=== PATIENT | male | born 1970 | race Caucasian/White ===

== ENCOUNTER 2018-02-12 18:11 | Emergency (ER) | payer MEDICAID | END 2018-02-12 19:07 | disposition home or self-care (01) | LOC: FTE 18:11 | DX: K40.90 Unilateral inguinal hernia, without obstruction or gangrene, not specified as recurrent (principal) | CPT/HCPCS: 99282; Z7502 ==

== ENCOUNTER 2018-09-25 20:34 | Emergency (ER) | payer SELFPAY, MEDICAID | END 2018-09-26 01:34 | disposition home or self-care (01) | LOC: FTE 09-26 01:34 | DX: K40.90 Unilateral inguinal hernia, without obstruction or gangrene, not specified as recurrent (principal) | CPT/HCPCS: 76705; 99284-25 ==

== ENCOUNTER 2018-12-19 20:47 | Inpatient (IN) | payer SELFPAY, OTHER ==
[2018-12-19] MEDS: SOD CHLORIDE 0.9% 1,000 ML IV (21:11)
[2018-12-19] MEDS: HYDROmorphONE 1 MG/ML SYG IV (21:11)
[2018-12-19] MEDS: ONDANSETRON 4 MG INJ IV (21:11)
[2018-12-19 21:23] LABS: ADD MAN DIFF? NO
[2018-12-19 21:24] LABS: BASOPHIL # 0.1 10^3/ul (0.0-0.1); BASOPHILS % 0.3 % (0.0-2.0); EOSINOPHILS # 0.1 10^3/ul (0.0-0.5); EOSINOPHILS % 0.4 % (0.0-7.0); HEMOGLOBIN 15.9 g/dl (14.0-18.0); LYMPHOCYTES # 3.6 10^3/ul (0.8-2.9); LYMPHOCYTES % 24.8 % (15.0-51.0); MEAN CORPUSCULAR HEMOGLOBIN 32.6 pg (29.0-33.0); MEAN CORPUSCULAR HGB CONC 33.8 g/dl (32.0-37.0); MEAN CORPUSCULAR VOLUME 96.3 fl (82.0-101.0); MEAN PLATELET VOLUME 10.7 fl (7.4-10.4); MONOCYTE # 1.1 10^3/ul (0.3-0.9); MONOCYTES % 7.7 % (0.0-11.0); NEUTROPHIL # 9.7 10^3/ul (1.6-7.5); NEUTROPHILS % 66.2 % (39.0-77.0); PLATELET COUNT 291 10^3/UL (140-415); RED BLOOD COUNT 4.88 10^6/ul (4.70-6.10); RED CELL DISTRIBUTION WIDTH 12.6 % (11.5-14.5)
[2018-12-19 21:24] LABS: WHITE BLOOD COUNT 14.6 10^3/ul (4.8-10.8)
[2018-12-19 21:46] LABS: INR 0.86; PROTIME 11.8 Sec (11.9-14.9); PT RATIO 0.9
[2018-12-19 21:49] LABS: ALANINE AMINOTRANSFERASE 45 IU/L (13-69); ALBUMIN 4.5 g/dl (3.3-4.9); ALBUMIN/GLOBULIN RATIO 1.18; ALKALINE PHOSPHATASE 75 IU/L (42-121); ANION GAP 12 (5-13); ASPARTATE AMINO TRANSFERASE 43 IU/L (15-46); BILIRUBIN,INDIRECT 0.6 mg/dl (0-1.1); BILIRUBIN,TOTAL 0.6 mg/dl (0.2-1.3); BLOOD UREA NITROGEN 14 mg/dl (7-20); CARBON DIOXIDE 27 mmol/L (21-31); CHLORIDE 99 mmol/L (97-110); CREATININE 0.99 mg/dl (0.61-1.24); Estimated GFR > 60 mL/min (>60); GLUCOSE 140 mg/dl (70-220); LIPASE 73 U/L (23-300); POTASSIUM 3.8 mmol/L (3.5-5.1); SODIUM 138 mmol/L (135-144); TOTAL PROTEIN 8.3 g/dl (6.1-8.1)
[2018-12-19] MEDS: SOD CHLORIDE 0.9% 100 ML (22:42)
[2018-12-19] MEDS: IOHEXOL 300MG/ML 150 ML BTL (22:42)
[2018-12-19] MEDS: HYDROmorphONE 2 MG/ML SYG IV (22:58)
[2018-12-20] MEDS: CIPROFLOXACIN 400MG/D5W 200 ML IVPB (00:23)
[2018-12-20] MEDS ORDERED: LORAZEPAM 2 MG INJ IV (00:30)
[2018-12-20] MEDS ORDERED: ACETAMINOPHEN 325 MG TAB PO (00:30)
[2018-12-20] MEDS ORDERED: DOCUSATE SODIUM 100 MG CAP PO (00:30)
[2018-12-20] MEDS ORDERED: ALBUTEROL/IPRATROPIUM (NEB) 3 ML AMP HHN (00:30)
[2018-12-20] MEDS ORDERED: ONDANSETRON 4 MG INJ IV (00:30)
[2018-12-20] MEDS ORDERED: MAGNESIUM HYDROXIDE 30ML CUP PO (00:30)
[2018-12-20] MEDS ORDERED: hydrALAzine 20 MG INJ IV (00:30)
[2018-12-20] MEDS ORDERED: NITROGLYCERIN (SL) 0.4 MG TAB SL (00:30)
[2018-12-20] MEDS: metroNIDAZOLE 500 MG/NS (PMX) 100 ML IVPB (01:35)
[2018-12-20] MEDS: HYDROmorphONE 0.5 MG/0.5 ML SYG IV (02:00)
[2018-12-20] MEDS: SOD CHLORIDE 0.9% 1,000 ML IV ×4 (02:00→22:48)
[2018-12-20 02:16] LABS: FREE T4 (FREE THYROXINE) 1.05 ng/dl (0.64-1.79)
[2018-12-20 03:18] LABS: INR 0.92; PROTIME 12.5 Sec (11.9-14.9)
[2018-12-20 03:19] LABS: PARTIAL THROMBOPLASTIN TIME 25.7 Sec (23.0-35.0)
[2018-12-20] MEDS: morphine 2 MG INJ IV (04:37)
[2018-12-20] MEDS: PIPER-TAZO 3.375 GM IV (PMX) 100 ML IVPB ×4 (05:43→23:33)
[2018-12-20] MEDS: PANTOPRAZOLE 40 MG INJ IV (05:44)
[2018-12-20] MEDS: HYDROCODONE/APAP (5/325) TAB PO (07:26)
[2018-12-20] MEDS: FLUTICASONE 0.05% 16 GM NAS SPRAY NASAL ×2 (09:00→21:00)
[2018-12-20] MEDS: HYDROmorphONE 1 MG/ML SYG IV (09:22)
[2018-12-20] MEDS: HEPARIN 5,000 UNIT/1 ML VIAL SC ×2 (09:25→22:17)
[2018-12-20] MEDS: POLYETHYLENE GLYCOL 17 GM PACKET PO (11:23)
[2018-12-20] MEDS: LORAZEPAM 2 MG INJ IV (11:25)
[2018-12-20 11:46] LABS: LACTIC ACID 4.4 mmol/L (0.5-2.0)
[2018-12-20] MEDS: KETOROLAC 15 MG INJ IV ×3 (12:20→22:44)
[2018-12-20] MEDS: DOCUSATE SODIUM 100 MG CAP PO (12:20)
[2018-12-20] MEDS: SOD CHLORIDE 0.9% 2,390 ML IV (13:25)
[2018-12-20] MEDS: SODIUM CHLORIDE 0.9% 1L BAG IV* (17:37)
[2018-12-20 20:39] LABS: LACTIC ACID 5.1 mmol/L (0.5-2.0)
[2018-12-20] MEDS: SOD CHLORIDE 0.9% 500 ML IV (21:22)
[2018-12-21] MEDS: DOCUSATE SODIUM 100 MG CAP PO ×2 (03:52→17:59)
[2018-12-21] MEDS: morphine 4 MG/ML VIAL IV (03:56)
[2018-12-21] MEDS: KETOROLAC 15 MG INJ IV ×4 (05:42→23:03)
[2018-12-21] MEDS: PANTOPRAZOLE 40 MG INJ IV (05:42)
[2018-12-21] MEDS: PIPER-TAZO 3.375 GM IV (PMX) 100 ML IVPB ×3 (05:43→18:01)
[2018-12-21] MEDS: SOD CHLORIDE 0.9% 1,000 ML IV ×2 (06:24→16:24)
[2018-12-21 06:43] LABS: WHITE BLOOD COUNT 21.5 10^3/ul (4.8-10.8)
[2018-12-21 06:43] LABS: HEMATOCRIT 37.2 % (42.0-52.0); HEMOGLOBIN 12.6 g/dl (14.0-18.0); MEAN CORPUSCULAR HEMOGLOBIN 33.6 pg (29.0-33.0); MEAN CORPUSCULAR HGB CONC 33.9 g/dl (32.0-37.0); MEAN CORPUSCULAR VOLUME 99.2 fl (82.0-101.0); MEAN PLATELET VOLUME 10.9 fl (7.4-10.4); PLATELET COUNT 226 10^3/UL (140-415); POSITIVE DIFF @See below; RED BLOOD COUNT 3.75 10^6/ul (4.70-6.10); RED CELL DISTRIBUTION WIDTH 12.8 % (11.5-14.5)
[2018-12-21 06:45] LABS: ADD MAN DIFF? YES
[2018-12-21 07:02] LABS: ANION GAP 9 (5-13); BLOOD UREA NITROGEN 18 mg/dl (7-20); CARBON DIOXIDE 20 mmol/L (21-31); CHLORIDE 110 mmol/L (97-110); CREATININE 0.96 mg/dl (0.61-1.24); Estimated GFR > 60 mL/min (>60); GLUCOSE 144 mg/dl (70-220); MAGNESIUM 1.7 mg/dl (1.7-2.5); PHOSPHORUS 2.4 mg/dl (2.5-4.9); POTASSIUM 3.8 mmol/L (3.5-5.1); SODIUM 139 mmol/L (135-144)
[2018-12-21 07:04] LABS: CHOLESTEROL 99 mg/dl (100-200)
[2018-12-21 07:04] LABS: CHOL/HDL RATIO 3.8 RATIO; HDL CHOLESTEROL 26 mg/dl (27-67); LDL CHOLESTEROL,CALCULATED 45 mg/dl; TRIGLYCERIDES 140 mg/dl (0-149)
[2018-12-21 07:12] LABS: LACTIC ACID 2.7 mmol/L (0.5-2.0)
[2018-12-21 07:30] LABS: THYROID STIMULATING HORMONE 0.921 MIU/L (0.465-4.680)
[2018-12-21] MEDS: POLYETHYLENE GLYCOL 17 GM PACKET PO (08:40)
[2018-12-21] MEDS: HEPARIN 5,000 UNIT/1 ML VIAL SC ×2 (08:45→20:38)
[2018-12-21] MEDS: FLUTICASONE 0.05% 16 GM NAS SPRAY NASAL ×2 (08:49→20:32)
[2018-12-21 09:38] LABS: BAND NEUTROPHILS #M 10.1 10^3/ul (0.0-0.6); BAND NEUTROPHILS % (M) 47 % (0-4); LYMPHOCYTES % (M) 5 % (15-51); MONOCYTE #M 0.2 10^3/ul (0.3-0.9); MONOCYTES % (M) 1 % (0-11); PLATELET ESTIMATE NORMAL; POIKILOCYTOSIS 3+ (0-0); POLYCHROMASIA 3+ (0-0); SEG NEUT #M 12.3 10^3/ul (1.6-7.5); SEGMENTED NEUTROPHILS (M) % 47 % (39-77)
[2018-12-21] MEDS: IOHEXOL 14.3 MG(I)/ML (ADULT) BTL PO (13:42)
[2018-12-21] MEDS: IOHEXOL 300MG/ML 150 ML BTL (17:23)
[2018-12-21] MEDS: SOD CHLORIDE 0.9% 100 ML (17:23)
[2018-12-21] MEDS: ACETAMINOPHEN 325 MG TAB PO (17:59)
[2018-12-21] MEDS: MEROPENEM 1 GM/50ML(PMX) 50 ML IVPB (21:15)
[2018-12-22] MEDS: DOCUSATE SODIUM 100 MG CAP PO ×2 (00:39→13:00)
[2018-12-22] MEDS: SOD CHLORIDE 0.9% 1,000 ML IV ×4 (00:40→23:13)
[2018-12-22] MEDS: morphine 4 MG/ML VIAL IV ×4 (01:03→22:58)
[2018-12-22] MEDS: PANTOPRAZOLE 40 MG INJ IV (05:40)
[2018-12-22] MEDS: KETOROLAC 15 MG INJ IV (05:40)
[2018-12-22] MEDS: MEROPENEM 1 GM/50ML(PMX) 50 ML IVPB ×3 (05:40→21:37)
[2018-12-22] MEDS: ONDANSETRON 4 MG INJ IV ×2 (05:42→18:31)
[2018-12-22 07:07] LABS: WHITE BLOOD COUNT 19.9 10^3/ul (4.8-10.8)
[2018-12-22 07:07] LABS: ABNORMAL IP MESSAGE 1; HEMATOCRIT 33.9 % (42.0-52.0); HEMOGLOBIN 11.5 g/dl (14.0-18.0); MEAN CORPUSCULAR HGB CONC 33.9 g/dl (32.0-37.0); MEAN CORPUSCULAR VOLUME 97.4 fl (82.0-101.0); MEAN PLATELET VOLUME 11.1 fl (7.4-10.4); PLATELET COUNT 213 10^3/UL (140-415); POSITIVE DIFF @See below; RED BLOOD COUNT 3.48 10^6/ul (4.70-6.10); RED CELL DISTRIBUTION WIDTH 12.9 % (11.5-14.5)
[2018-12-22 07:15] LABS: ADD MAN DIFF? YES
[2018-12-22 07:26] LABS: ANION GAP 10 (5-13); BLOOD UREA NITROGEN 16 mg/dl (7-20); CALCIUM 8.2 mg/dl (8.4-10.2); CARBON DIOXIDE 22 mmol/L (21-31); CHLORIDE 109 mmol/L (97-110); CREATININE 0.77 mg/dl (0.61-1.24); Estimated GFR > 60 mL/min (>60); GLUCOSE 103 mg/dl (70-220); POTASSIUM 3.6 mmol/L (3.5-5.1); SODIUM 141 mmol/L (135-144)
[2018-12-22] MEDS: FLUTICASONE 0.05% 16 GM NAS SPRAY NASAL ×2 (09:53→20:32)
[2018-12-22] MEDS: POLYETHYLENE GLYCOL 17 GM PACKET PO (09:53)
[2018-12-22] MEDS: RANITIDINE 150 MG TAB PO (09:59)
[2018-12-22] MEDS: HEPARIN 5,000 UNIT/1 ML VIAL SC ×2 (10:26→20:34)
[2018-12-22 11:00] LABS: ANISOCYTOSIS 1+ (0-0); BAND NEUTROPHILS #M 7.7 10^3/ul (0.0-0.6); BAND NEUTROPHILS % (M) 39 % (0-4); GIANT THROMBO% (M) 3 % (0-0); LYMPHOCYTES #M 0.9 10^3/ul (0.8-2.9); LYMPHOCYTES % (M) 5 % (15-51); METAMYELOCYTES #M 0.1 10^3/ul (0.0-0.0); METAMYELOCYTES %M 1 % (0-0); MONOCYTE #M 0.3 10^3/ul (0.3-0.9); MONOCYTES % (M) 2 % (0-11); PLATELET ESTIMATE NORMAL; SEG NEUT #M 12.1 10^3/ul (1.6-7.5); SEGMENTED NEUTROPHILS (M) % 53 % (39-77); SMUDGE%M 32 % (0-0)
[2018-12-22] MEDS: HYDROCODONE/APAP (5/325) TAB PO ×2 (11:43→18:31)
[2018-12-22] MEDS ORDERED: VANCOMYCIN IV PER PHARMACY XX (14:30)
[2018-12-22] MEDS: FLUCONAZOLE 100 MG/50 ML (PMX) 50 ML IVPB (15:18)
[2018-12-22] MEDS: VANCOMYCIN HCL 1.75 GM in SOD CHLORIDE 0.9% 500 ML IVPB (17:03)
[2018-12-23] MEDS: DOCUSATE SODIUM 100 MG CAP PO ×2 (00:06→12:32)
[2018-12-23] MEDS: morphine 4 MG/ML VIAL IV ×4 (03:27→17:04)
[2018-12-23] MEDS: VANCOMYCIN HCL 1.25 GM in SOD CHLORIDE 0.9% 250 ML IVPB ×2 (04:19→16:28)
[2018-12-23] MEDS: MEROPENEM 1 GM/50ML(PMX) 50 ML IVPB ×3 (06:10→21:25)
[2018-12-23 08:16] LABS: ADD MAN DIFF? NO
[2018-12-23 08:29] LABS: WHITE BLOOD COUNT 21.8 10^3/ul (4.8-10.8)
[2018-12-23 08:29] LABS: BASOPHIL # 0.1 10^3/ul (0.0-0.1); BASOPHILS % 0.6 % (0.0-2.0); HEMATOCRIT 32.5 % (42.0-52.0); HEMOGLOBIN 10.8 g/dl (14.0-18.0); LYMPHOCYTES % 4.8 % (15.0-51.0); MEAN CORPUSCULAR HEMOGLOBIN 32.9 pg (29.0-33.0); MEAN CORPUSCULAR HGB CONC 33.2 g/dl (32.0-37.0); MEAN CORPUSCULAR VOLUME 99.1 fl (82.0-101.0); MONOCYTE # 0.8 10^3/ul (0.3-0.9); MONOCYTES % 3.7 % (0.0-11.0); NEUTROPHIL # 19.6 10^3/ul (1.6-7.5); NEUTROPHILS % 90.1 % (39.0-77.0); PLATELET COUNT 231 10^3/UL (140-415); RED BLOOD COUNT 3.28 10^6/ul (4.70-6.10)
[2018-12-23 08:57] LABS: ANION GAP 9 (5-13); BLOOD UREA NITROGEN 17 mg/dl (7-20); CALCIUM 8.4 mg/dl (8.4-10.2); CARBON DIOXIDE 24 mmol/L (21-31); CHLORIDE 109 mmol/L (97-110); CREATININE 0.84 mg/dl (0.61-1.24); Estimated GFR > 60 mL/min (>60); GLUCOSE 83 mg/dl (70-220); POTASSIUM 3.6 mmol/L (3.5-5.1); SODIUM 142 mmol/L (135-144)
[2018-12-23] MEDS: POLYETHYLENE GLYCOL 17 GM PACKET PO (09:21)
[2018-12-23] MEDS: FLUTICASONE 0.05% 16 GM NAS SPRAY NASAL ×2 (09:21→20:40)
[2018-12-23] MEDS: PANTOPRAZOLE (EC) 40 MG TAB PO (09:21)
[2018-12-23] MEDS: SOD CHLORIDE 0.9% 1,000 ML IV (09:32)
[2018-12-23] MEDS: HEPARIN 5,000 UNIT/1 ML VIAL SC ×2 (09:48→20:47)
[2018-12-23] MEDS: DEXTROSE 5%-0.45% NACL 1,000 ML IV (12:32)
[2018-12-23] MEDS: FLUCONAZOLE 100 MG/50 ML (PMX) 50 ML IVPB (15:11)
[2018-12-23] MEDS: HYDROCODONE/APAP (5/325) TAB PO (20:39)
[2018-12-24] MEDS: DOCUSATE SODIUM 100 MG CAP PO ×2 (00:30→12:36)
[2018-12-24] MEDS: HYDROCODONE/APAP (5/325) TAB PO ×4 (03:30→22:41)
[2018-12-24] MEDS: VANCOMYCIN HCL 1.25 GM in SOD CHLORIDE 0.9% 250 ML IVPB ×3 (04:47→21:42)
[2018-12-24 05:31] LABS: ADD MAN DIFF? NO
[2018-12-24] MEDS: MEROPENEM 1 GM/50ML(PMX) 50 ML IVPB ×3 (05:32→22:00)
[2018-12-24 05:37] LABS: BASOPHIL # 0.1 10^3/ul (0.0-0.1); BASOPHILS % 0.6 % (0.0-2.0); EOSINOPHILS % 0.2 % (0.0-7.0); HEMATOCRIT 33.4 % (42.0-52.0); HEMOGLOBIN 11.1 g/dl (14.0-18.0); LYMPHOCYTES # 1.4 10^3/ul (0.8-2.9); LYMPHOCYTES % 7.7 % (15.0-51.0); MEAN CORPUSCULAR HEMOGLOBIN 32.8 pg (29.0-33.0); MEAN CORPUSCULAR HGB CONC 33.2 g/dl (32.0-37.0); MEAN CORPUSCULAR VOLUME 98.8 fl (82.0-101.0); MONOCYTE # 1.1 10^3/ul (0.3-0.9); MONOCYTES % 6.1 % (0.0-11.0); NEUTROPHIL # 14.7 10^3/ul (1.6-7.5); NEUTROPHILS % 82.2 % (39.0-77.0); PLATELET COUNT 257 10^3/UL (140-415); RED BLOOD COUNT 3.38 10^6/ul (4.70-6.10)
[2018-12-24 05:37] LABS: WHITE BLOOD COUNT 17.9 10^3/ul (4.8-10.8)
[2018-12-24 05:59] LABS: VANCOMYCIN,RANDOM < 5.0 ug/ml
[2018-12-24 06:03] LABS: ANION GAP 7 (5-13); BLOOD UREA NITROGEN 19 mg/dl (7-20); CALCIUM 8.4 mg/dl (8.4-10.2); CARBON DIOXIDE 25 mmol/L (21-31); CHLORIDE 108 mmol/L (97-110); CREATININE 0.74 mg/dl (0.61-1.24); Estimated GFR > 60 mL/min (>60); GLUCOSE 87 mg/dl (70-220); POTASSIUM 3.8 mmol/L (3.5-5.1); SODIUM 140 mmol/L (135-144)
[2018-12-24] MEDS: PANTOPRAZOLE (EC) 40 MG TAB PO (08:52)
[2018-12-24] MEDS: HEPARIN 5,000 UNIT/1 ML VIAL SC ×2 (08:58→21:53)
[2018-12-24] MEDS: POLYETHYLENE GLYCOL 17 GM PACKET PO (09:00)
[2018-12-24] MEDS: FLUTICASONE 0.05% 16 GM NAS SPRAY NASAL ×2 (11:08→21:43)
[2018-12-24] MEDS: FLUCONAZOLE 100 MG/50 ML (PMX) 50 ML IVPB (17:12)
[2018-12-24] MEDS: RANITIDINE 150 MG TAB PO (22:41)
[2018-12-25] MEDS: DOCUSATE SODIUM 100 MG CAP PO ×2 (00:30→12:45)
[2018-12-25] MEDS: MEROPENEM 1 GM/50ML(PMX) 50 ML IVPB ×4 (02:14→16:00)
[2018-12-25] MEDS: VANCOMYCIN HCL 1.25 GM in SOD CHLORIDE 0.9% 250 ML IVPB ×3 (04:54→21:25)
[2018-12-25] MEDS: HYDROCODONE/APAP (5/325) TAB PO ×3 (04:54→18:35)
[2018-12-25 06:43] LABS: ADD MAN DIFF? NO
[2018-12-25 06:47] LABS: ABNORMAL IP MESSAGE 1; BASOPHIL # 0.1 10^3/ul (0.0-0.1); BASOPHILS % 0.3 % (0.0-2.0); EOSINOPHILS # 0.1 10^3/ul (0.0-0.5); EOSINOPHILS % 0.4 % (0.0-7.0); HEMATOCRIT 35.8 % (42.0-52.0); LYMPHOCYTES # 1.8 10^3/ul (0.8-2.9); LYMPHOCYTES % 9.9 % (15.0-51.0); MEAN CORPUSCULAR HEMOGLOBIN 32.5 pg (29.0-33.0); MEAN CORPUSCULAR HGB CONC 33.5 g/dl (32.0-37.0); MEAN PLATELET VOLUME 10.4 fl (7.4-10.4); MONOCYTE # 1.3 10^3/ul (0.3-0.9); NEUTROPHIL # 14.3 10^3/ul (1.6-7.5); PLATELET COUNT 344 10^3/UL (140-415); POSITIVE DIFF @See below; RED BLOOD COUNT 3.69 10^6/ul (4.70-6.10); RED CELL DISTRIBUTION WIDTH 12.9 % (11.5-14.5)
[2018-12-25 06:47] LABS: WHITE BLOOD COUNT 18.3 10^3/ul (4.8-10.8)
[2018-12-25 07:11] LABS: ANION GAP 9 (5-13); BLOOD UREA NITROGEN 15 mg/dl (7-20); CALCIUM 8.5 mg/dl (8.4-10.2); CARBON DIOXIDE 27 mmol/L (21-31); CHLORIDE 103 mmol/L (97-110); CREATININE 0.81 mg/dl (0.61-1.24); Estimated GFR > 60 mL/min (>60); GLUCOSE 139 mg/dl (70-220); POTASSIUM 3.5 mmol/L (3.5-5.1); SODIUM 139 mmol/L (135-144)
[2018-12-25] MEDS: POLYETHYLENE GLYCOL 17 GM PACKET PO (08:46)
[2018-12-25] MEDS: FLUTICASONE 0.05% 16 GM NAS SPRAY NASAL ×2 (08:46→21:26)
[2018-12-25] MEDS: PANTOPRAZOLE (EC) 40 MG TAB PO (08:46)
[2018-12-25] MEDS: HEPARIN 5,000 UNIT/1 ML VIAL SC ×2 (08:53→21:23)
[2018-12-25 12:54] LABS: VANCOMYCIN,TROUGH 11.9 ug/ml (10.0-20.0)
[2018-12-25] MEDS: FLUCONAZOLE 100 MG/50 ML (PMX) 50 ML IVPB (18:34)
[2018-12-26] MEDS: MEROPENEM 1 GM/50ML(PMX) 50 ML IVPB ×3 (00:28→17:13)
[2018-12-26] MEDS: DOCUSATE SODIUM 100 MG CAP PO ×2 (00:33→12:30)
[2018-12-26] MEDS: HYDROCODONE/APAP (5/325) TAB PO ×3 (03:09→15:58)
[2018-12-26] MEDS: VANCOMYCIN HCL 1.25 GM in SOD CHLORIDE 0.9% 250 ML IVPB ×3 (04:32→20:46)
[2018-12-26 06:10] LABS: ADD MAN DIFF? NO
[2018-12-26 06:19] LABS: WHITE BLOOD COUNT 18.5 10^3/ul (4.8-10.8)
[2018-12-26 06:19] LABS: BASOPHIL # 0.1 10^3/ul (0.0-0.1); BASOPHILS % 0.6 % (0.0-2.0); EOSINOPHILS # 0.1 10^3/ul (0.0-0.5); EOSINOPHILS % 0.4 % (0.0-7.0); HEMATOCRIT 34.5 % (42.0-52.0); HEMOGLOBIN 11.7 g/dl (14.0-18.0); LYMPHOCYTES # 2.2 10^3/ul (0.8-2.9); MEAN CORPUSCULAR HEMOGLOBIN 32.8 pg (29.0-33.0); MEAN CORPUSCULAR HGB CONC 33.9 g/dl (32.0-37.0); MEAN CORPUSCULAR VOLUME 96.6 fl (82.0-101.0); MEAN PLATELET VOLUME 10.6 fl (7.4-10.4); MONOCYTE # 1.2 10^3/ul (0.3-0.9); MONOCYTES % 6.4 % (0.0-11.0); PLATELET COUNT 363 10^3/UL (140-415); RED BLOOD COUNT 3.57 10^6/ul (4.70-6.10)
[2018-12-26 06:57] LABS: ANION GAP 7 (5-13); BLOOD UREA NITROGEN 12 mg/dl (7-20); CARBON DIOXIDE 29 mmol/L (21-31); CHLORIDE 104 mmol/L (97-110); CREATININE 0.75 mg/dl (0.61-1.24); Estimated GFR > 60 mL/min (>60); GLUCOSE 99 mg/dl (70-220); SODIUM 140 mmol/L (135-144)
[2018-12-26 07:01] LABS: POTASSIUM 2.9 mmol/L (3.5-5.1)
[2018-12-26] MEDS: POTASSIUM CHLORIDE (SR) 20 MEQ TAB PO (07:10)
[2018-12-26] MEDS: PANTOPRAZOLE (EC) 40 MG TAB PO (08:39)
[2018-12-26] MEDS: FLUTICASONE 0.05% 16 GM NAS SPRAY NASAL ×2 (08:39→20:46)
[2018-12-26] MEDS: POLYETHYLENE GLYCOL 17 GM PACKET PO (08:39)
[2018-12-26] MEDS: HEPARIN 5,000 UNIT/1 ML VIAL SC ×2 (08:42→20:52)
[2018-12-26] MEDS: morphine 4 MG/ML VIAL IV (13:48)
[2018-12-26] MEDS: FLUCONAZOLE 100 MG/50 ML (PMX) 50 ML IVPB (17:53)
[2018-12-27] MEDS: DOCUSATE SODIUM 100 MG CAP PO ×2 (00:13→12:30)
[2018-12-27] MEDS: MEROPENEM 1 GM/50ML(PMX) 50 ML IVPB ×3 (00:13→17:20)
[2018-12-27] MEDS: HYDROCODONE/APAP (5/325) TAB PO ×3 (00:13→12:29)
[2018-12-27] MEDS: VANCOMYCIN HCL 1.25 GM in SOD CHLORIDE 0.9% 250 ML IVPB ×3 (05:13→21:43)
[2018-12-27 05:35] LABS: ADD MAN DIFF? NO
[2018-12-27 05:41] LABS: BASOPHIL # 0.2 10^3/ul (0.0-0.1); BASOPHILS % 0.8 % (0.0-2.0); EOSINOPHILS # 0.1 10^3/ul (0.0-0.5); EOSINOPHILS % 0.3 % (0.0-7.0); HEMATOCRIT 36.1 % (42.0-52.0); HEMOGLOBIN 11.9 g/dl (14.0-18.0); LYMPHOCYTES # 2.6 10^3/ul (0.8-2.9); MEAN CORPUSCULAR HEMOGLOBIN 32.6 pg (29.0-33.0); MEAN CORPUSCULAR VOLUME 98.9 fl (82.0-101.0); MEAN PLATELET VOLUME 10.6 fl (7.4-10.4); MONOCYTE # 1.1 10^3/ul (0.3-0.9); MONOCYTES % 5.1 % (0.0-11.0); NEUTROPHIL # 17.5 10^3/ul (1.6-7.5); NEUTROPHILS % 79.6 % (39.0-77.0); PLATELET COUNT 411 10^3/UL (140-415); POSITIVE DIFF @See below; RED BLOOD COUNT 3.65 10^6/ul (4.70-6.10); RED CELL DISTRIBUTION WIDTH 13.1 % (11.5-14.5)
[2018-12-27 06:00] LABS: ANION GAP 6 (5-13); BLOOD UREA NITROGEN 12 mg/dl (7-20); CALCIUM 8.8 mg/dl (8.4-10.2); CARBON DIOXIDE 31 mmol/L (21-31); CHLORIDE 103 mmol/L (97-110); Estimated GFR > 60 mL/min (>60); GLUCOSE 94 mg/dl (70-220); POTASSIUM 4.3 mmol/L (3.5-5.1); SODIUM 140 mmol/L (135-144)
[2018-12-27] MEDS: POLYETHYLENE GLYCOL 17 GM PACKET PO (09:00)
[2018-12-27] MEDS: FLUTICASONE 0.05% 16 GM NAS SPRAY NASAL ×2 (09:01→21:47)
[2018-12-27] MEDS: PANTOPRAZOLE (EC) 40 MG TAB PO (09:01)
[2018-12-27] MEDS: HEPARIN 5,000 UNIT/1 ML VIAL SC ×2 (09:03→21:50)
[2018-12-27] MEDS: IOHEXOL 14.3 MG(I)/ML (ADULT) BTL PO (12:25)
[2018-12-27] MEDS: SOD CHLORIDE 0.9% 100 ML (15:42)
[2018-12-27] MEDS: IOHEXOL 300MG/ML 150 ML BTL (15:42)
[2018-12-27] MEDS: IOHEXOL 300MG/ML 30 ML BTL ×2 (15:43)
[2018-12-27] MEDS: FLUCONAZOLE 100 MG/50 ML (PMX) 50 ML IVPB (16:01)
[2018-12-27 19:57] LABS: LACTIC ACID 1.1 mmol/L (0.5-2.0)
[2018-12-27] MEDS: DEXTROSE 5%-0.45% NACL 1,000 ML IV (22:17)
[2018-12-27] MEDS: ONDANSETRON 4 MG INJ IV (23:17)
[2018-12-27] MEDS: NACL 0.9% 3 ML SYG IV (23:18)
[2018-12-28] MEDS: MEROPENEM 1 GM/50ML(PMX) 50 ML IVPB ×3 (00:09→16:00)
[2018-12-28] MEDS: DOCUSATE SODIUM 100 MG CAP PO ×2 (00:30→12:30)
[2018-12-28] MEDS: DEXTROSE 5%-0.45% NACL 1,000 ML IV ×3 (05:00→15:30)
[2018-12-28] MEDS: VANCOMYCIN HCL 1.25 GM in SOD CHLORIDE 0.9% 250 ML IVPB ×2 (05:03→13:08)
[2018-12-28 05:32] LABS: ADD MAN DIFF? NO
[2018-12-28 05:47] LABS: BASOPHIL # 0.1 10^3/ul (0.0-0.1); BASOPHILS % 0.5 % (0.0-2.0); EOSINOPHILS # 0.1 10^3/ul (0.0-0.5); EOSINOPHILS % 0.3 % (0.0-7.0); LYMPHOCYTES % 9.7 % (15.0-51.0); MEAN CORPUSCULAR HEMOGLOBIN 32.9 pg (29.0-33.0); MEAN CORPUSCULAR HGB CONC 33.3 g/dl (32.0-37.0); MEAN CORPUSCULAR VOLUME 98.6 fl (82.0-101.0); MEAN PLATELET VOLUME 10.4 fl (7.4-10.4); MONOCYTE # 0.8 10^3/ul (0.3-0.9); MONOCYTES % 3.7 % (0.0-11.0); NEUTROPHIL # 17.4 10^3/ul (1.6-7.5); NEUTROPHILS % 83.9 % (39.0-77.0); PLATELET COUNT 470 10^3/UL (140-415); POSITIVE DIFF @See below; RED BLOOD COUNT 3.65 10^6/ul (4.70-6.10)
[2018-12-28 05:47] LABS: WHITE BLOOD COUNT 20.7 10^3/ul (4.8-10.8)
[2018-12-28 06:21] LABS: ANION GAP 6 (5-13); BLOOD UREA NITROGEN 10 mg/dl (7-20); CALCIUM 8.5 mg/dl (8.4-10.2); CARBON DIOXIDE 30 mmol/L (21-31); CHLORIDE 101 mmol/L (97-110); CREATININE 0.85 mg/dl (0.61-1.24); Estimated GFR > 60 mL/min (>60); GLUCOSE 111 mg/dl (70-220); MAGNESIUM 2.5 mg/dl (1.7-2.5); PHOSPHORUS 3.6 mg/dl (2.5-4.9); POTASSIUM 3.4 mmol/L (3.5-5.1); SODIUM 137 mmol/L (135-144)
[2018-12-28 06:56] LABS: ANISOCYTOSIS 1+ (0-0); BAND NEUTROPHILS #M 3.7 10^3/ul (0.0-0.6); BAND NEUTROPHILS % (M) 18 % (0-4); LYMPHOCYTES #M 2.2 10^3/ul (0.8-2.9); LYMPHOCYTES % (M) 11 % (15-51); MONOCYTES % (M) 10 % (0-11); PLATELET ESTIMATE NORMAL; POLYCHROMASIA 1+ (0-0); REACTIVE LYMPHOCYTES #M 0.2 10^3/ul (0.0-0.0); REACTIVE LYMPHOCYTES% (M) 1 % (0-0); SEG NEUT #M 13.2 10^3/ul (1.6-7.5); SEGMENTED NEUTROPHILS (M) % 60 % (39-77)
[2018-12-28] MEDS: PANTOPRAZOLE (EC) 40 MG TAB PO (08:19)
[2018-12-28] MEDS: POLYETHYLENE GLYCOL 17 GM PACKET PO (08:19)
[2018-12-28] MEDS: HEPARIN 5,000 UNIT/1 ML VIAL SC ×2 (08:20→22:12)
[2018-12-28] MEDS: FLUTICASONE 0.05% 16 GM NAS SPRAY NASAL ×2 (08:21→22:14)
[2018-12-28] MEDS: POTASSIUM CHLORIDE 100 ML IVPB (10:49)
[2018-12-28] MEDS ORDERED: CHLORPROMAZINE 25 MG INJ IM (11:00)
[2018-12-28 12:55] LABS: INR 1.01; PROTIME 13.4 Sec (11.9-14.9)
[2018-12-28 13:20] LABS: VANCOMYCIN,TROUGH 17.3 ug/ml (10.0-20.0)
[2018-12-28] MEDS ORDERED: BUPIVACAINE 0.5%/EPI (SDV) 30 ML INJ (13:41)
[2018-12-28] MEDS ORDERED: LIDOCAINE 1% (MPF) 30 ML INJ (13:42)
[2018-12-28] MEDS ORDERED: ROCURONIUM 50 MG INJ ×2 (13:44→15:18)
[2018-12-28] MEDS ORDERED: CEFAZOLIN 1 GM INJ (13:44)
[2018-12-28] MEDS ORDERED: PROPOFOL 20 ML (13:44)
[2018-12-28] MEDS ORDERED: metroNIDAZOLE 500 MG/NS (PMX) 100 ML IVPB (13:44)
[2018-12-28] MEDS ORDERED: FENTAnyl 50 MCG/ML VIAL (13:45)
[2018-12-28] MEDS ORDERED: ROPIVACAINE 0.2% 20 ML VIAL (13:45)
[2018-12-28] MEDS ORDERED: MIDAZOLAM 1 MG/ML 2 ML INJ (13:45)
[2018-12-28] MEDS ORDERED: morphine SULFATE/PF (10 MG/10 ML) INJ (13:45)
[2018-12-28] MEDS ORDERED: HETASTARCH 6% NACL 500 ML BAG (14:00)
[2018-12-28] MEDS ORDERED: SEVOFLURANE 15 MIN (14:00)
[2018-12-28] MEDS ORDERED: DEXAMETHASONE 4 MG/ML 5 ML INJ (15:08)
[2018-12-28] MEDS ORDERED: METOCLOPRAMIDE 10 MG INJ (15:08)
[2018-12-28] MEDS ORDERED: ONDANSETRON 4 MG INJ (15:08)
[2018-12-28] MEDS: FLUCONAZOLE 100 MG/50 ML (PMX) 50 ML IVPB (15:30)
[2018-12-28] MEDS ORDERED: ALBUMIN HUMAN 5% 250 ML (16:50)
[2018-12-28] MEDS ORDERED: SUGAMMADEX SODIUM 200 MG/2 ML VIAL IV (17:45)
[2018-12-28] MEDS ORDERED: HYDROmorphONE 0.5 MG/0.5 ML SYG IV ×3 (18:00→18:30)
[2018-12-28] MEDS ORDERED: HYDROmorphONE 1 MG/5 ML IV SYRINGE IV ×2 (18:27→18:30)
[2018-12-28] MEDS ORDERED: EPHEDrine 25 MG/5 ML SYG IV (18:30)
[2018-12-28] MEDS ORDERED: hydrALAzine 20 MG INJ IV (18:30)
[2018-12-28] MEDS ORDERED: morphine 2 MG INJ IV ×2 (18:30)
[2018-12-28] MEDS ORDERED: DIPHENHYDRAMINE 50 MG INJ IV ×2 (18:30)
[2018-12-28] MEDS ORDERED: FENTAnyl 50 MCG/ML VIAL IV ×3 (18:30)
[2018-12-28] MEDS ORDERED: NALOXONE (0.4 MG/ML) INJ IV (18:30)
[2018-12-28] MEDS ORDERED: ONDANSETRON 4 MG INJ IV ×2 (18:30)
[2018-12-28] MEDS ORDERED: LABETALOL HCL 20MG INJ IV (18:30)
[2018-12-28] MEDS ORDERED: HYDROmorphONE 0.2 MG/ML PCA IV (18:30)
[2018-12-28] MEDS ORDERED: NALBUPHINE HCL (10 MG/1 ML) INJ IV (18:30)
[2018-12-28] MEDS: HYDROmorphONE 1 MG/5 ML IV SYRINGE IV ×2 (18:41→18:43)
[2018-12-28] MEDS: MEPERIDINE 25 MG INJ IV (18:46)
[2018-12-28] MEDS: HYDROmorphONE 0.2 MG/ML PCA IV (19:06)
[2018-12-28 19:27] LABS: PLATELET COUNT 430 10^3/UL (140-415)
[2018-12-28 19:44] LABS: INR 1.11; PROTIME 14.4 Sec (11.9-14.9); PT RATIO 1.1
[2018-12-28 19:45] LABS: PARTIAL THROMBOPLASTIN TIME 28.1 Sec (23.0-35.0); THROMBIN TIME 13.1 SEC (13.8-19.1)
[2018-12-28] MEDS: VANCOMYCIN 1 GM 250 ML IVPB (22:13)
[2018-12-29] MEDS: MEROPENEM 1 GM/50ML(PMX) 50 ML IVPB ×3 (00:27→17:00)
[2018-12-29] MEDS: DOCUSATE SODIUM 100 MG CAP PO ×2 (00:30→12:30)
[2018-12-29] MEDS: DEXTROSE 5%-0.45% NACL 1,000 ML IV ×3 (01:00→13:12)
[2018-12-29] MEDS: POTASSIUM CHLORIDE 100 ML IVPB (01:15)
[2018-12-29] MEDS: VANCOMYCIN 1 GM 250 ML IVPB ×2 (05:10→13:12)
[2018-12-29 05:52] LABS: ADD MAN DIFF? NO
[2018-12-29 05:57] LABS: ABNORMAL IP MESSAGE 1; BASOPHILS % 0.2 % (0.0-2.0); HEMATOCRIT 31.6 % (42.0-52.0); HEMOGLOBIN 10.3 g/dl (14.0-18.0); LYMPHOCYTES # 1.1 10^3/ul (0.8-2.9); LYMPHOCYTES % 4.6 % (15.0-51.0); MEAN CORPUSCULAR HEMOGLOBIN 32.6 pg (29.0-33.0); MEAN CORPUSCULAR HGB CONC 32.6 g/dl (32.0-37.0); MEAN PLATELET VOLUME 10.5 fl (7.4-10.4); MONOCYTE # 0.9 10^3/ul (0.3-0.9); MONOCYTES % 3.7 % (0.0-11.0); NEUTROPHIL # 22.2 10^3/ul (1.6-7.5); PLATELET COUNT 449 10^3/UL (140-415); POSITIVE DIFF @See below; RED BLOOD COUNT 3.16 10^6/ul (4.70-6.10); RED CELL DISTRIBUTION WIDTH 13.1 % (11.5-14.5)
[2018-12-29 05:57] LABS: WHITE BLOOD COUNT 24.6 10^3/ul (4.8-10.8)
[2018-12-29 06:09] LABS: NEUTROPHILS % 90.4 % (39.0-77.0)
[2018-12-29 06:22] LABS: ANION GAP 5 (5-13); BLOOD UREA NITROGEN 11 mg/dl (7-20); CALCIUM 7.6 mg/dl (8.4-10.2); CARBON DIOXIDE 25 mmol/L (21-31); CHLORIDE 109 mmol/L (97-110); CREATININE 0.76 mg/dl (0.61-1.24); Estimated GFR > 60 mL/min (>60); GLUCOSE 145 mg/dl (70-220); MAGNESIUM 2.2 mg/dl (1.7-2.5); PHOSPHORUS 3.7 mg/dl (2.5-4.9); POTASSIUM 4.4 mmol/L (3.5-5.1); SODIUM 139 mmol/L (135-144)
[2018-12-29] MEDS: PANTOPRAZOLE (EC) 40 MG TAB PO (08:15)
[2018-12-29] MEDS: POLYETHYLENE GLYCOL 17 GM PACKET PO (08:15)
[2018-12-29] MEDS: FLUTICASONE 0.05% 16 GM NAS SPRAY NASAL ×3 (09:52→21:58)
[2018-12-29] MEDS: HEPARIN 5,000 UNIT/1 ML VIAL SC ×2 (10:44→21:52)
[2018-12-29] MEDS: FLUCONAZOLE 100 MG/50 ML (PMX) 50 ML IVPB (16:22)
[2018-12-29] MEDS: VANCOMYCIN 750 MG (PMX) 250 ML IVPB (21:51)
[2018-12-30] MEDS: DOCUSATE SODIUM 100 MG CAP PO ×2 (00:30→11:38)
[2018-12-30] MEDS: MEROPENEM 1 GM/50ML(PMX) 50 ML IVPB ×3 (01:31→15:40)
[2018-12-30] MEDS: DEXTROSE 5%-0.45% NACL 1,000 ML IV ×3 (04:16→20:15)
[2018-12-30 05:27] LABS: ADD MAN DIFF? NO
[2018-12-30 05:33] LABS: BASOPHILS % 0.3 % (0.0-2.0); EOSINOPHILS % 0.3 % (0.0-7.0); HEMATOCRIT 28.9 % (42.0-52.0); HEMOGLOBIN 9.3 g/dl (14.0-18.0); LYMPHOCYTES # 1.8 10^3/ul (0.8-2.9); MEAN CORPUSCULAR HEMOGLOBIN 32.6 pg (29.0-33.0); MEAN CORPUSCULAR HGB CONC 32.2 g/dl (32.0-37.0); MEAN CORPUSCULAR VOLUME 101.4 fl (82.0-101.0); MEAN PLATELET VOLUME 10.3 fl (7.4-10.4); MONOCYTE # 0.9 10^3/ul (0.3-0.9); MONOCYTES % 5.8 % (0.0-11.0); NEUTROPHILS % 80.5 % (39.0-77.0); PLATELET COUNT 438 10^3/UL (140-415); RED BLOOD COUNT 2.85 10^6/ul (4.70-6.10)
[2018-12-30 05:33] LABS: WHITE BLOOD COUNT 14.9 10^3/ul (4.8-10.8)
[2018-12-30 06:03] LABS: ANION GAP 5 (5-13); BLOOD UREA NITROGEN 9 mg/dl (7-20); CALCIUM 7.6 mg/dl (8.4-10.2); CARBON DIOXIDE 31 mmol/L (21-31); CHLORIDE 105 mmol/L (97-110); CREATININE 0.85 mg/dl (0.61-1.24); Estimated GFR > 60 mL/min (>60); GLUCOSE 112 mg/dl (70-220); MAGNESIUM 2.4 mg/dl (1.7-2.5); PHOSPHORUS 2.5 mg/dl (2.5-4.9); SODIUM 141 mmol/L (135-144)
[2018-12-30] MEDS: VANCOMYCIN 750 MG (PMX) 250 ML IVPB ×3 (06:19→22:29)
[2018-12-30] MEDS: POLYETHYLENE GLYCOL 17 GM PACKET PO (09:00)
[2018-12-30] MEDS: PANTOPRAZOLE (EC) 40 MG TAB PO (09:00)
[2018-12-30] MEDS: FLUTICASONE 0.05% 16 GM NAS SPRAY NASAL ×2 (09:55→21:13)
[2018-12-30] MEDS: HEPARIN 5,000 UNIT/1 ML VIAL SC ×2 (09:57→21:19)
[2018-12-30] MEDS: FAMOTIDINE 20 MG INJ IV ×2 (13:40→21:13)
[2018-12-30] MEDS: FLUCONAZOLE 100 MG/50 ML (PMX) 50 ML IVPB (16:31)
[2018-12-30 21:43] LABS: VANCOMYCIN,TROUGH 9.7 ug/ml (10.0-20.0)
[2018-12-31] MEDS: MEROPENEM 1 GM/50ML(PMX) 50 ML IVPB ×3 (00:57→17:24)
[2018-12-31] MEDS: DEXTROSE 5%-0.45% NACL 1,000 ML IV ×2 (04:19→08:55)
[2018-12-31 05:31] LABS: ADD MAN DIFF? NO
[2018-12-31 05:35] LABS: WHITE BLOOD COUNT 10.4 10^3/ul (4.8-10.8)
[2018-12-31 05:35] LABS: BASOPHIL # 0.1 10^3/ul (0.0-0.1); BASOPHILS % 0.5 % (0.0-2.0); EOSINOPHILS # 0.1 10^3/ul (0.0-0.5); EOSINOPHILS % 0.9 % (0.0-7.0); HEMATOCRIT 28.1 % (42.0-52.0); HEMOGLOBIN 9.1 g/dl (14.0-18.0); LYMPHOCYTES # 1.8 10^3/ul (0.8-2.9); LYMPHOCYTES % 17.5 % (15.0-51.0); MEAN CORPUSCULAR HEMOGLOBIN 32.6 pg (29.0-33.0); MEAN CORPUSCULAR HGB CONC 32.4 g/dl (32.0-37.0); MEAN CORPUSCULAR VOLUME 100.7 fl (82.0-101.0); MEAN PLATELET VOLUME 9.9 fl (7.4-10.4); MONOCYTE # 0.6 10^3/ul (0.3-0.9); MONOCYTES % 6.2 % (0.0-11.0); NEUTROPHIL # 7.7 10^3/ul (1.6-7.5); NEUTROPHILS % 73.6 % (39.0-77.0); PLATELET COUNT 474 10^3/UL (140-415); RED BLOOD COUNT 2.79 10^6/ul (4.70-6.10); RED CELL DISTRIBUTION WIDTH 12.6 % (11.5-14.5)
[2018-12-31 06:10] LABS: ANION GAP 7 (5-13); BLOOD UREA NITROGEN 8 mg/dl (7-20); CALCIUM 8.1 mg/dl (8.4-10.2); CARBON DIOXIDE 29 mmol/L (21-31); CHLORIDE 105 mmol/L (97-110); CREATININE 0.83 mg/dl (0.61-1.24); Estimated GFR > 60 mL/min (>60); GLUCOSE 118 mg/dl (70-220); MAGNESIUM 2.4 mg/dl (1.7-2.5); PHOSPHORUS 2.5 mg/dl (2.5-4.9); POTASSIUM 3.7 mmol/L (3.5-5.1); SODIUM 141 mmol/L (135-144)
[2018-12-31] MEDS: VANCOMYCIN 1 GM 250 ML IVPB ×3 (06:11→21:41)
[2018-12-31] MEDS: FAMOTIDINE 20 MG INJ IV ×2 (08:41→21:40)
[2018-12-31] MEDS: FLUTICASONE 0.05% 16 GM NAS SPRAY NASAL ×2 (08:41→21:41)
[2018-12-31] MEDS: HEPARIN 5,000 UNIT/1 ML VIAL SC ×2 (08:45→21:45)
[2018-12-31] MEDS ORDERED: TPN 1,000 ML IV (16:33)
[2018-12-31] MEDS: FLUCONAZOLE 100 MG/50 ML (PMX) 50 ML IVPB (16:48)
[2018-12-31 17:43] LABS: ALANINE AMINOTRANSFERASE 33 IU/L (13-69); ALBUMIN 2.9 g/dl (3.3-4.9); ALBUMIN/GLOBULIN RATIO 0.85; ALKALINE PHOSPHATASE 77 IU/L (42-121); ANION GAP 3 (5-13); ASPARTATE AMINO TRANSFERASE 37 IU/L (15-46); BILIRUBIN,INDIRECT 0.6 mg/dl (0-1.1); BILIRUBIN,TOTAL 0.6 mg/dl (0.2-1.3); BLOOD UREA NITROGEN 8 mg/dl (7-20); CALCIUM 8.1 mg/dl (8.4-10.2); CARBON DIOXIDE 28 mmol/L (21-31); CHLORIDE 105 mmol/L (97-110); CREATININE 0.75 mg/dl (0.61-1.24); Estimated GFR > 60 mL/min (>60); GLUCOSE 92 mg/dl (70-220); MAGNESIUM 2.4 mg/dl (1.7-2.5); PHOSPHORUS 2.8 mg/dl (2.5-4.9); POTASSIUM 3.9 mmol/L (3.5-5.1); SODIUM 136 mmol/L (135-144); TOTAL PROTEIN 6.3 g/dl (6.1-8.1); TRIGLYCERIDES 157 mg/dl (0-149)
[2018-12-31 17:49] LABS: PREALBUMIN 10.6 mg/dl (17.6-36.0)
[2018-12-31] MEDS: ACCU-CHEK XX (21:00)
[2019-01-01] MEDS: DEXTROSE 5%-0.45% NACL 1,000 ML IV ×3 (00:22→13:39)
[2019-01-01] MEDS: MEROPENEM 1 GM/50ML(PMX) 50 ML IVPB ×3 (00:22→16:15)
[2019-01-01] MEDS: ACCU-CHEK XX ×6 (01:00→21:00)
[2019-01-01 05:43] LABS: WHITE BLOOD COUNT 8.2 10^3/ul (4.8-10.8)
[2019-01-01 05:43] LABS: ADD MAN DIFF? NO; BASOPHIL # 0.1 10^3/ul (0.0-0.1); BASOPHILS % 0.6 % (0.0-2.0); EOSINOPHILS # 0.1 10^3/ul (0.0-0.5); EOSINOPHILS % 1.7 % (0.0-7.0); HEMATOCRIT 29.2 % (42.0-52.0); HEMOGLOBIN 9.9 g/dl (14.0-18.0); LYMPHOCYTES # 1.8 10^3/ul (0.8-2.9); LYMPHOCYTES % 21.6 % (15.0-51.0); MEAN CORPUSCULAR HEMOGLOBIN 32.9 pg (29.0-33.0); MEAN CORPUSCULAR HGB CONC 33.9 g/dl (32.0-37.0); MEAN PLATELET VOLUME 9.8 fl (7.4-10.4); MONOCYTE # 0.5 10^3/ul (0.3-0.9); MONOCYTES % 6.2 % (0.0-11.0); NEUTROPHIL # 5.7 10^3/ul (1.6-7.5); NEUTROPHILS % 68.8 % (39.0-77.0); PLATELET COUNT 486 10^3/UL (140-415); RED BLOOD COUNT 3.01 10^6/ul (4.70-6.10); RED CELL DISTRIBUTION WIDTH 12.5 % (11.5-14.5)
[2019-01-01 06:15] LABS: VANCOMYCIN,TROUGH 13.6 ug/ml (10.0-20.0)
[2019-01-01 06:33] LABS: ANION GAP 9 (5-13); BLOOD UREA NITROGEN 9 mg/dl (7-20); CALCIUM 8.5 mg/dl (8.4-10.2); CARBON DIOXIDE 27 mmol/L (21-31); CHLORIDE 105 mmol/L (97-110); CREATININE 0.79 mg/dl (0.61-1.24); Estimated GFR > 60 mL/min (>60); GLUCOSE 118 mg/dl (70-220); MAGNESIUM 2.4 mg/dl (1.7-2.5); PHOSPHORUS 3.2 mg/dl (2.5-4.9); POTASSIUM 3.7 mmol/L (3.5-5.1); SODIUM 141 mmol/L (135-144)
[2019-01-01] MEDS: VANCOMYCIN 1 GM 250 ML IVPB ×3 (06:36→21:37)
[2019-01-01] MEDS: FAMOTIDINE 20 MG INJ IV ×2 (09:03→21:27)
[2019-01-01] MEDS: FLUTICASONE 0.05% 16 GM NAS SPRAY NASAL ×2 (09:03→21:34)
[2019-01-01] MEDS: HEPARIN 5,000 UNIT/1 ML VIAL SC ×2 (09:05→21:30)
[2019-01-01] MEDS: FLUCONAZOLE 100 MG/50 ML (PMX) 50 ML IVPB (15:33)
[2019-01-01] MEDS: TPN 1,000 ML IV (17:57)
[2019-01-01] MEDS: HYDROmorphONE 0.2 MG/ML PCA IV (18:09)
[2019-01-02] MEDS: MEROPENEM 1 GM/50ML(PMX) 50 ML IVPB ×4 (00:14→23:53)
[2019-01-02] MEDS: ACCU-CHEK XX ×6 (01:00→21:00)
[2019-01-02] MEDS: VANCOMYCIN 1 GM 250 ML IVPB ×3 (05:25→21:14)
[2019-01-02 06:45] LABS: ANION GAP 10 (5-13); BLOOD UREA NITROGEN 14 mg/dl (7-20); CALCIUM 8.7 mg/dl (8.4-10.2); CARBON DIOXIDE 25 mmol/L (21-31); CHLORIDE 104 mmol/L (97-110); CREATININE 0.68 mg/dl (0.61-1.24); Estimated GFR > 60 mL/min (>60); GLUCOSE 117 mg/dl (70-220); MAGNESIUM 2.3 mg/dl (1.7-2.5); PHOSPHORUS 3.6 mg/dl (2.5-4.9); POTASSIUM 4.4 mmol/L (3.5-5.1); SODIUM 139 mmol/L (135-144)
[2019-01-02] MEDS: FAMOTIDINE 20 MG INJ IV ×2 (08:24→21:20)
[2019-01-02] MEDS: FLUTICASONE 0.05% 16 GM NAS SPRAY NASAL ×2 (08:24→21:27)
[2019-01-02] MEDS: HEPARIN 5,000 UNIT/1 ML VIAL SC ×2 (08:28→21:20)
[2019-01-02] MEDS: TPN 1,000 ML IV ×2 (08:40→10:47)
[2019-01-02] MEDS: FLUCONAZOLE 100 MG/50 ML (PMX) 50 ML IVPB (16:18)
[2019-01-03] MEDS: ACCU-CHEK XX ×6 (01:19→21:00)
[2019-01-03] MEDS: TPN 1,000 ML IV ×3 (05:04→21:06)
[2019-01-03 06:36] LABS: ANION GAP 9 (5-13); BLOOD UREA NITROGEN 16 mg/dl (7-20); CALCIUM 9.3 mg/dl (8.4-10.2); CARBON DIOXIDE 28 mmol/L (21-31); CHLORIDE 102 mmol/L (97-110); CREATININE 0.94 mg/dl (0.61-1.24); Estimated GFR > 60 mL/min (>60); GLUCOSE 100 mg/dl (70-220); MAGNESIUM 2.3 mg/dl (1.7-2.5); PHOSPHORUS 3.8 mg/dl (2.5-4.9); POTASSIUM 4.3 mmol/L (3.5-5.1); SODIUM 139 mmol/L (135-144)
[2019-01-03 06:36] LABS: VANCOMYCIN,TROUGH 16.5 ug/ml (10.0-20.0)
[2019-01-03] MEDS: VANCOMYCIN 1 GM 250 ML IVPB (06:51)
[2019-01-03] MEDS: FAMOTIDINE 20 MG INJ IV ×2 (09:09→21:00)
[2019-01-03] MEDS: FLUTICASONE 0.05% 16 GM NAS SPRAY NASAL ×2 (09:10→21:00)
[2019-01-03] MEDS: HEPARIN 5,000 UNIT/1 ML VIAL SC ×2 (09:11→21:02)
[2019-01-03] MEDS: MEROPENEM 1 GM/50ML(PMX) 50 ML IVPB ×2 (10:29→16:56)
[2019-01-03] MEDS: VANCOMYCIN 750 MG (PMX) 250 ML IVPB ×2 (13:12→22:10)
[2019-01-03] MEDS: FLUCONAZOLE 100 MG/50 ML (PMX) 50 ML IVPB (15:38)
[2019-01-04] MEDS: MEROPENEM 1 GM/50ML(PMX) 50 ML IVPB ×4 (00:29→23:43)
[2019-01-04] MEDS: ACCU-CHEK XX ×4 (01:00→20:48)
[2019-01-04] MEDS: VANCOMYCIN 750 MG (PMX) 250 ML IVPB (05:26)
[2019-01-04 05:41] LABS: ADD MAN DIFF? NO
[2019-01-04 05:45] LABS: WHITE BLOOD COUNT 8.9 10^3/ul (4.8-10.8)
[2019-01-04 05:45] LABS: BASOPHIL # 0.1 10^3/ul (0.0-0.1); BASOPHILS % 0.9 % (0.0-2.0); EOSINOPHILS # 0.2 10^3/ul (0.0-0.5); EOSINOPHILS % 1.7 % (0.0-7.0); HEMATOCRIT 32.3 % (42.0-52.0); HEMOGLOBIN 10.9 g/dl (14.0-18.0); LYMPHOCYTES % 22.6 % (15.0-51.0); MEAN CORPUSCULAR HEMOGLOBIN 32.5 pg (29.0-33.0); MEAN CORPUSCULAR HGB CONC 33.7 g/dl (32.0-37.0); MEAN CORPUSCULAR VOLUME 96.4 fl (82.0-101.0); MONOCYTE # 0.7 10^3/ul (0.3-0.9); NEUTROPHIL # 5.8 10^3/ul (1.6-7.5); NEUTROPHILS % 65.5 % (39.0-77.0); PLATELET COUNT 478 10^3/UL (140-415); RED BLOOD COUNT 3.35 10^6/ul (4.70-6.10); RED CELL DISTRIBUTION WIDTH 12.7 % (11.5-14.5)
[2019-01-04 06:11] LABS: ALBUMIN 3.4 g/dl (3.3-4.9); ANION GAP 8 (5-13); BLOOD UREA NITROGEN 17 mg/dl (7-20); CALCIUM 9.2 mg/dl (8.4-10.2); CARBON DIOXIDE 25 mmol/L (21-31); CHLORIDE 105 mmol/L (97-110); CREATININE 0.83 mg/dl (0.61-1.24); GLUCOSE 113 mg/dl (70-220); MAGNESIUM 2.3 mg/dl (1.7-2.5); PHOSPHORUS 3.5 mg/dl (2.5-4.9); SODIUM 138 mmol/L (135-144)
[2019-01-04 06:21] LABS: POTASSIUM 4.3 mmol/L (3.5-5.1)
[2019-01-04] MEDS: FAMOTIDINE 20 MG INJ IV ×2 (08:47→20:50)
[2019-01-04] MEDS: HEPARIN 5,000 UNIT/1 ML VIAL SC ×2 (08:48→20:50)
[2019-01-04] MEDS: FLUTICASONE 0.05% 16 GM NAS SPRAY NASAL ×2 (08:53→20:48)
[2019-01-04] MEDS ORDERED: HYDROmorphONE 1 MG/ML SYG IV (14:00)
[2019-01-04] MEDS: TPN 1,000 ML IV (14:44)
[2019-01-04] MEDS: FLUCONAZOLE 100 MG/50 ML (PMX) 50 ML IVPB (15:47)
[2019-01-05 05:33] LABS: ADD MAN DIFF? NO
[2019-01-05 05:34] LABS: WHITE BLOOD COUNT 9.9 10^3/ul (4.8-10.8)
[2019-01-05 05:34] LABS: BASOPHIL # 0.1 10^3/ul (0.0-0.1); EOSINOPHILS # 0.1 10^3/ul (0.0-0.5); EOSINOPHILS % 1.4 % (0.0-7.0); HEMATOCRIT 31.9 % (42.0-52.0); HEMOGLOBIN 10.7 g/dl (14.0-18.0); LYMPHOCYTES # 1.8 10^3/ul (0.8-2.9); LYMPHOCYTES % 18.4 % (15.0-51.0); MEAN CORPUSCULAR HEMOGLOBIN 32.9 pg (29.0-33.0); MEAN CORPUSCULAR HGB CONC 33.5 g/dl (32.0-37.0); MEAN CORPUSCULAR VOLUME 98.2 fl (82.0-101.0); MEAN PLATELET VOLUME 10.1 fl (7.4-10.4); MONOCYTE # 0.8 10^3/ul (0.3-0.9); MONOCYTES % 7.9 % (0.0-11.0); NEUTROPHILS % 70.3 % (39.0-77.0); PLATELET COUNT 438 10^3/UL (140-415); RED BLOOD COUNT 3.25 10^6/ul (4.70-6.10); RED CELL DISTRIBUTION WIDTH 12.7 % (11.5-14.5)
[2019-01-05 06:16] LABS: ALBUMIN 3.4 g/dl (3.3-4.9); ANION GAP 8 (5-13); BLOOD UREA NITROGEN 19 mg/dl (7-20); CALCIUM 9.2 mg/dl (8.4-10.2); CARBON DIOXIDE 25 mmol/L (21-31); CHLORIDE 105 mmol/L (97-110); GLUCOSE 110 mg/dl (70-220); MAGNESIUM 2.3 mg/dl (1.7-2.5); PHOSPHORUS 3.7 mg/dl (2.5-4.9); POTASSIUM 4.2 mmol/L (3.5-5.1); SODIUM 138 mmol/L (135-144)
[2019-01-05] MEDS: HEPARIN 5,000 UNIT/1 ML VIAL SC ×2 (08:49→21:32)
[2019-01-05] MEDS: FAMOTIDINE 20 MG INJ IV ×2 (08:49→21:29)
[2019-01-05] MEDS: MEROPENEM 1 GM/50ML(PMX) 50 ML IVPB (08:51)
[2019-01-05] MEDS: TPN 1,000 ML IV (08:55)
[2019-01-05] MEDS: ACCU-CHEK XX ×2 (09:00→21:00)
[2019-01-05] MEDS: FLUTICASONE 0.05% 16 GM NAS SPRAY NASAL ×2 (09:00→21:29)
[2019-01-06 05:43] LABS: ADD MAN DIFF? NO
[2019-01-06 05:47] LABS: WHITE BLOOD COUNT 8.7 10^3/ul (4.8-10.8)
[2019-01-06 05:47] LABS: BASOPHIL # 0.1 10^3/ul (0.0-0.1); BASOPHILS % 0.9 % (0.0-2.0); EOSINOPHILS # 0.1 10^3/ul (0.0-0.5); EOSINOPHILS % 1.5 % (0.0-7.0); HEMATOCRIT 31.5 % (42.0-52.0); HEMOGLOBIN 10.7 g/dl (14.0-18.0); LYMPHOCYTES # 2.2 10^3/ul (0.8-2.9); LYMPHOCYTES % 25.6 % (15.0-51.0); MEAN CORPUSCULAR HEMOGLOBIN 32.6 pg (29.0-33.0); MEAN PLATELET VOLUME 10.2 fl (7.4-10.4); MONOCYTE # 0.8 10^3/ul (0.3-0.9); MONOCYTES % 8.7 % (0.0-11.0); NEUTROPHIL # 5.4 10^3/ul (1.6-7.5); NEUTROPHILS % 62.4 % (39.0-77.0); PLATELET COUNT 458 10^3/UL (140-415); RED BLOOD COUNT 3.28 10^6/ul (4.70-6.10); RED CELL DISTRIBUTION WIDTH 12.8 % (11.5-14.5)
[2019-01-06 06:19] LABS: ALBUMIN 3.5 g/dl (3.3-4.9); ANION GAP 10 (5-13); BLOOD UREA NITROGEN 18 mg/dl (7-20); CALCIUM 9.3 mg/dl (8.4-10.2); CARBON DIOXIDE 24 mmol/L (21-31); CHLORIDE 104 mmol/L (97-110); CREATININE 0.92 mg/dl (0.61-1.24); GLUCOSE 104 mg/dl (70-220); MAGNESIUM 2.3 mg/dl (1.7-2.5); PHOSPHORUS 3.5 mg/dl (2.5-4.9); POTASSIUM 4.4 mmol/L (3.5-5.1); SODIUM 138 mmol/L (135-144)
[2019-01-06] MEDS: ACCU-CHEK XX (09:00)
[2019-01-06] MEDS: FAMOTIDINE 20 MG INJ IV ×2 (09:18→21:44)
[2019-01-06] MEDS: FLUTICASONE 0.05% 16 GM NAS SPRAY NASAL ×2 (09:19→21:44)
[2019-01-06] MEDS: HEPARIN 5,000 UNIT/1 ML VIAL SC ×2 (09:21→21:46)
[2019-01-06] MEDS: traMADol 50 MG TAB PO (15:57)
[2019-01-07 07:02] LABS: PREALBUMIN 26.6 mg/dl (17.6-36.0)
[2019-01-07] MEDS: FLUTICASONE 0.05% 16 GM NAS SPRAY NASAL ×2 (09:31→21:15)
[2019-01-07] MEDS: FAMOTIDINE 20 MG INJ IV ×2 (09:31→21:15)
[2019-01-07] MEDS: HEPARIN 5,000 UNIT/1 ML VIAL SC ×2 (09:31→21:18)
[2019-01-07] MEDS: traMADol 50 MG TAB PO (09:41)
[2019-01-08] MEDS: FAMOTIDINE 20 MG INJ IV ×2 (08:57→22:17)
[2019-01-08] MEDS: FLUTICASONE 0.05% 16 GM NAS SPRAY NASAL ×2 (09:00→22:17)
[2019-01-08] MEDS: HEPARIN 5,000 UNIT/1 ML VIAL SC ×2 (09:02→22:19)
[2019-01-08] MEDS: traMADol 50 MG TAB PO (19:32)
[2019-01-09] MEDS: FAMOTIDINE 20 MG INJ IV ×2 (08:35→21:45)
[2019-01-09] MEDS: HEPARIN 5,000 UNIT/1 ML VIAL SC ×2 (08:42→21:50)
[2019-01-09] MEDS: FLUTICASONE 0.05% 16 GM NAS SPRAY NASAL ×2 (08:43→21:45)
[2019-01-09] MEDS: traMADol 50 MG TAB PO (12:48)
[2019-01-10 05:33] LABS: ADD MAN DIFF? NO
[2019-01-10 05:37] LABS: BASOPHILS % 0.4 % (0.0-2.0); EOSINOPHILS # 0.2 10^3/ul (0.0-0.5); EOSINOPHILS % 1.7 % (0.0-7.0); HEMATOCRIT 31.4 % (42.0-52.0); HEMOGLOBIN 10.4 g/dl (14.0-18.0); LYMPHOCYTES # 1.9 10^3/ul (0.8-2.9); LYMPHOCYTES % 21.3 % (15.0-51.0); MEAN CORPUSCULAR HEMOGLOBIN 32.4 pg (29.0-33.0); MEAN CORPUSCULAR HGB CONC 33.1 g/dl (32.0-37.0); MEAN CORPUSCULAR VOLUME 97.8 fl (82.0-101.0); MEAN PLATELET VOLUME 10.7 fl (7.4-10.4); MONOCYTE # 0.6 10^3/ul (0.3-0.9); MONOCYTES % 6.7 % (0.0-11.0); NEUTROPHIL # 6.3 10^3/ul (1.6-7.5); NEUTROPHILS % 69.6 % (39.0-77.0); PLATELET COUNT 408 10^3/UL (140-415); RED BLOOD COUNT 3.21 10^6/ul (4.70-6.10)
[2019-01-10 05:37] LABS: WHITE BLOOD COUNT 9.1 10^3/ul (4.8-10.8)
[2019-01-10 06:15] LABS: ALBUMIN 3.5 g/dl (3.3-4.9); ANION GAP 8 (5-13); BLOOD UREA NITROGEN 12 mg/dl (7-20); CALCIUM 9.2 mg/dl (8.4-10.2); CARBON DIOXIDE 27 mmol/L (21-31); CHLORIDE 104 mmol/L (97-110); GLUCOSE 84 mg/dl (70-220); MAGNESIUM 2.2 mg/dl (1.7-2.5); PHOSPHORUS 4.7 mg/dl (2.5-4.9); POTASSIUM 4.3 mmol/L (3.5-5.1); SODIUM 139 mmol/L (135-144)
[2019-01-10] MEDS: traMADol 50 MG TAB PO ×2 (06:37→15:00)
[2019-01-10] MEDS: HEPARIN 5,000 UNIT/1 ML VIAL SC ×2 (09:22→20:44)
[2019-01-10] MEDS: FAMOTIDINE 20 MG INJ IV ×2 (09:22→20:44)
[2019-01-10] MEDS: FLUTICASONE 0.05% 16 GM NAS SPRAY NASAL ×2 (09:22→20:44)
[2019-01-10] MEDS: NACL 0.9% 3 ML SYG IV (09:24)
[2019-01-11] MEDS: FAMOTIDINE 20 MG INJ IV ×2 (08:50→20:53)
[2019-01-11] MEDS: HEPARIN 5,000 UNIT/1 ML VIAL SC ×2 (08:54→20:55)
[2019-01-11] MEDS: FLUTICASONE 0.05% 16 GM NAS SPRAY NASAL ×2 (08:55→20:56)
[2019-01-11] MEDS: NACL 0.9% 3 ML SYG IV (08:56)
[2019-01-11] MEDS: traMADol 50 MG TAB PO (09:57)
[2019-01-12] MEDS: HEPARIN 5,000 UNIT/1 ML VIAL SC ×2 (09:03→21:38)
[2019-01-12] MEDS: FLUTICASONE 0.05% 16 GM NAS SPRAY NASAL ×2 (09:05→21:30)
[2019-01-12] MEDS: FAMOTIDINE 20 MG INJ IV ×2 (09:05→21:30)
[2019-01-12] MEDS: traMADol 50 MG TAB PO ×2 (17:58→22:02)
[2019-01-13 05:46] LABS: ADD MAN DIFF? NO
[2019-01-13 05:48] LABS: BASOPHILS % 0.4 % (0.0-2.0); EOSINOPHILS # 0.2 10^3/ul (0.0-0.5); EOSINOPHILS % 2.2 % (0.0-7.0); HEMATOCRIT 32.3 % (42.0-52.0); HEMOGLOBIN 10.7 g/dl (14.0-18.0); LYMPHOCYTES # 1.9 10^3/ul (0.8-2.9); LYMPHOCYTES % 19.4 % (15.0-51.0); MEAN CORPUSCULAR HEMOGLOBIN 31.9 pg (29.0-33.0); MEAN CORPUSCULAR HGB CONC 33.1 g/dl (32.0-37.0); MEAN CORPUSCULAR VOLUME 96.4 fl (82.0-101.0); MEAN PLATELET VOLUME 10.4 fl (7.4-10.4); MONOCYTE # 0.8 10^3/ul (0.3-0.9); MONOCYTES % 7.6 % (0.0-11.0); NEUTROPHILS % 69.9 % (39.0-77.0); PLATELET COUNT 401 10^3/UL (140-415); RED BLOOD COUNT 3.35 10^6/ul (4.70-6.10); RED CELL DISTRIBUTION WIDTH 12.5 % (11.5-14.5)
[2019-01-13 06:39] LABS: ANION GAP 11 (5-13); BLOOD UREA NITROGEN 10 mg/dl (7-20); CALCIUM 9.5 mg/dl (8.4-10.2); CARBON DIOXIDE 26 mmol/L (21-31); CHLORIDE 102 mmol/L (97-110); CREATININE 0.97 mg/dl (0.61-1.24); Estimated GFR > 60 mL/min (>60); GLUCOSE 87 mg/dl (70-220); MAGNESIUM 2.1 mg/dl (1.7-2.5); PHOSPHORUS 4.7 mg/dl (2.5-4.9); POTASSIUM 4.4 mmol/L (3.5-5.1); SODIUM 139 mmol/L (135-144)
[2019-01-13] MEDS: FLUTICASONE 0.05% 16 GM NAS SPRAY NASAL (09:00)
[2019-01-13] MEDS: FAMOTIDINE 20 MG INJ IV (09:00)
[2019-01-13] MEDS: HEPARIN 5,000 UNIT/1 ML VIAL SC (09:01)
[2019-01-13] MEDS: NACL 0.9% 3 ML SYG IV (09:11)
[2019-01-13] MEDS: traMADol 50 MG TAB PO (14:31)
== END 2019-01-13 18:00 | disposition home or self-care (01) | DRG 854 ==
LOC: TEL 12-23 19:38 → 2NE 12-25 16:09 → E/R 20:47 → 5EC 12-20 00:20 → TEL 12-20 18:33
PROC: 0DTN0ZZ Resection of Sigmoid Colon, Open Approach (ICD-10-PCS; principal; 2018-12-28 13:50)
PROC: 0DNG0ZZ Release Left Large Intestine, Open Approach (ICD-10-PCS; 2018-12-28 13:50)
PROC: 0DJD4ZZ Inspection of Lower Intestinal Tract, Percutaneous Endoscopic Approach (ICD-10-PCS; 2018-12-28 13:50)
DX: A41.9 Sepsis, unspecified organism (principal); K57.20 Diverticulitis of large intestine with perforation and abscess without bleeding; E87.2 Acidosis; K66.0 Peritoneal adhesions (postprocedural) (postinfection); K76.0 Fatty (change of) liver, not elsewhere classified; D64.9 Anemia, unspecified; R06.6 Hiccough; Z53.31 Laparoscopic surgical procedure converted to open procedure
CPT/HCPCS: 36415; 71045; 74177; 80048; 80053; 80061; 80069; 80202; 82962; 83036; 83605; 83690; 83735; 84100; 84134; 84439; 84443; 84478; 85025; 85049; 85610; 85670; 85730; 87040-91; 87081; 87086; 88304; 93005; 96374; 96375; 96376; 97110; 97116; 97162; 97530; 99285-25